=== PATIENT | male | born 1975 | race Caucasian/White ===

== ENCOUNTER 2019-02-20 09:12 | Emergency (ER) | payer SELFPAY ==
--- NOTE | 2019-02-20 09:56 | EDM.PDOC ---
ED HPI GENERAL MEDICAL PROBLEM - General Chief Complaint: ENT Problem Stated Complaint: SORE THROAT SENT BY [facility] Time Seen by Provider: 02/20/19 09:36 Source of Information: Reports: Patient History Limitations: Reports: No Limitations - History of Present Illness INITIAL COMMENTS - FREE TEXT/NARRATIVE: 43-year-old male presents to the ED at the request of his primary care physician or [facility] with a foreign body sensation in his right throat for about a week. He states he feels this occurred after sampling some weight in the field and feels like part opf husk or awn became stuck in the right side of his throat. Has a persistent irritation in the right side of his throat in the distribution of the vallecula. He can eat and drink okay. He has no fever chills not exactly sure why he was sent to the ED for evaluation. Onset: Sudden Onset Date: 02/13/19 Duration: Hour(s): Location: Reports: Neck (Right side of his throat.) Quality: Reports: Other Severity: Mild (Irritation foreign body sensation) Improves with: Reports: None Worsens with: Reports: None Context: Reports: Other (Foreign body sensation right side of his throat started to occur after he sampled some green in his mouth. It is believed that a part of the grain aswn or husk may have gotten stuck in his left vallecula versus a scratch. However spent a week and it hasn't gotten better.). Denies: Activity, Exercise, Lifting, Sick Contact, Trauma Associated Symptoms: Reports: No Other Symptoms Treatments FLOSSER: Reports: Other (see below) Throat Pain Score (Numeric/FACES): 2 - Related Data Allergies Allergy/AdvReac Type Severity Reaction Status Date / Time No Known Allergies Allergy Verified 02/20/19 09:35 Home Meds: Home Meds . [No Known Home Meds] 02/20/19 [History] Past Medical History Cardiovascular History: Reports: None Respiratory History: Reports: None Genitourinary History: Reports: None Musculoskeletal History: Reports: Amputation Neurological History: Reports: None Psychiatric History: Reports: None Endocrine/Metabolic History: Reports: None Hematologic History: Reports: None Immunologic History: Reports: None Oncologic (Cancer) History: Reports: None Dermatologic History: Reports: None - Infectious Disease History Infectious Disease History: Reports: None - Past Surgical History Head Surgeries/Procedures: Reports: None HEENT Surgical History: Reports: Oral Surgery GI Surgical History: Reports: Appendectomy Social & Family History - Tobacco Use Smoking Status *Q: Never Smoker - Caffeine Use Caffeine Use: Reports: None - Recreational Drug Use Recreational Drug Use: No - Living Situation & Occupation Living situation: Reports: Occupation: Employed ED ROS ENT - Review of Systems Review Of Systems: See Below Constitutional: Denies: Fever, Chills, Malaise, Weakness, Fatigue, Decreased Appetite, Weight Loss HEENT: Reports: Other (Foreign body sensation right side of throat at the base of his tongue.) Respiratory: Reports: No Symptoms Cardiovascular: Reports: No Symptoms Endocrine: Reports: No Symptoms GI/Abdominal: Reports: No Symptoms : Reports: No Symptoms Musculoskeletal: Reports: No Symptoms Skin: Reports: No Symptoms Neurological: Reports: No Symptoms Psychiatric: Reports: No Symptoms ED EXAM, ENT - Physical Exam Exam: See Below Exam Limited By: No Limitations General Appearance: WD/WN, No Apparent Distress Ears: Normal TMs Mouth/Throat: Normal Inspection, Normal Gums, Normal Lips, Normal Teeth, Other ( Inspection of the oral cavity reveals no ulcerations no inflammation. For the mouth is normal. I cannot visualize any foreign body or erythema of the posterior oropharynx.) Respiratory/Chest: No Respiratory Distress, Lungs Clear, Normal Breath Sounds, No Accessory Muscle Use Cardiovascular: Normal Peripheral Pulses, Regular Rate, Rhythm, No Edema, No Gallop, No Murmur Course - Vital Signs Last Recorded V/S: Last Vital Signs Temp 36.4 C 02/20/19 09:33 Pulse 78 02/20/19 09:33 Resp 16 02/20/19 09:33 BP 146/91 H 02/20/19 09:33 Pulse Ox 99 02/20/19 09:33 - Radiology Interpretation Free Text/Narrative:: 43-year-old male presents to the ED with foreign body sensation in his right side of his throat for about one week. Feels this may be a green hospitalist as he was sampling gr in his mouth when this occurred. Examination is otherwise normal. The only thing I can think he might benefit from is eating bread soaked in no and mashed potatoes. If this did not clear within 48 hours then he could pursue ear nose and throat consultation with Dr. Verdugo in [place]. I have written down Dr. Verdugo's phone number for the patient to contact and make an appointment directly with his office. 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 Advised this may still be a scratch and most time foreign bodies in the vallecula will resolve on their own as the body were proximal. However if he's not better in 48 hours with above attempts at treatment remedies then he is to call ENT. Departure - Departure Time of Disposition: 10:17 Disposition: Home, Self-Care 01 Condition: Fair Clinical Impression: Foreign body sensation in throat - Discharge Information *PRESCRIPTION DRUG MONITORING PROGRAM REVIEWED*: Not Applicable *COPY OF PRESCRIPTION DRUG MONITORING REPORT IN PATIENT KASSI: Not Applicable Referrals: Tommy Beverly MD [Primary Care Provider] - Forms: ED Department Discharge Additional Instructions: History suggests possible foreign body in the right vallecula which is a little pouch behind her tongue. She of sampling green and perhaps a hospital off of the gr became stuck in this pocket causing foreign body sensation. At this time there is no signs of infection in the area. Is acting as an irritant. It is likely to resolve on its own. I would suggest trying bread soaked in milk and mashed potatoes over the next day or so to see if it resolves. If it fails to improve then please make an appointment to see Dr. Verdugo ,ear,nose and throat surgeon in [place]--please phone [phone]
== END 2019-02-20 10:15 | disposition home or self-care (01) ==
LOC: JD.ED 09:12
DX: R09.89 Other specified symptoms and signs involving the circulatory and respiratory systems (principal)
CPT/HCPCS: 99282